=== PATIENT | male | born 1965 | race Two or more races ===

== ENCOUNTER 2023-08-20 23:01 | Inpatient (IN) | payer OTHER ==
[2023-08-20 23:46] VITALS: BMI 20.3
[2023-08-21] MEDS ORDERED: BENZONATATE 200 MG CAPSULE PO PRN (01:00)
[2023-08-21] MEDS ORDERED: MAG HYDROX/AL HYDROX/SIMETH 30 ML UNIT-DOSE CUP PO PRN (01:00)
[2023-08-21] MEDS ORDERED: ONDANSETRON *ODT* 4 MG TABLET SL PRN (01:00)
[2023-08-21] MEDS ORDERED: MAGNESIUM HYDROX 2400MG/30ML ORAL SUSPENSION 30 ML CUP PO PRN (01:00)
[2023-08-21] MEDS ORDERED: POLYETHYLENE GLYCOL (HEALTHYLAX) 3350 17 GM PACKET PO PRN (01:00)
[2023-08-21] MEDS ORDERED: IBUPROFEN 400 MG TABLET (FP) PO PRN (01:00)
[2023-08-21] MEDS ORDERED: guaiFENesin 600 MG TABLET.ER (FP) PO PRN (01:00)
[2023-08-21] MEDS ORDERED: ACETAMINOPHEN 325 MG TABLET (FP) PO PRN (01:00)
[2023-08-21] MEDS ORDERED: LOPERAMIDE HCL 2 MG CAPSULE PO PRN (01:00)
[2023-08-21] MEDS ORDERED: NICOTINE POLACRILEX 2 MG GUM BUC PRN (01:00)
[2023-08-21] MEDS ORDERED: BISMUTH SUBSALICYLATE 524 MG/30 ML PO PRN (01:00)
[2023-08-21] MEDS ORDERED: NALOXONE HCL 0.4 MG/ML VIAL IM PRN (01:00)
[2023-08-21] MEDS ORDERED: NALOXONE HCL (KLOXXADO) 8 MG SPRAY NS PRN (01:00)
[2023-08-21] MEDS ORDERED: BENZOCAINE/MENTHOL (CHLORASEPTIC ) LOZENGE MM PRN (01:00)
[2023-08-21] MEDS: NICOTINE 14 MG/24 HOURS TOPICAL PATCH TD SCH (10:13)
[2023-08-21] MEDS: PRENATAL VITAMINS W/ FOLIC ACID TABLET (FP) PO SCH (10:13)
[2023-08-21] MEDS: hydrOXYzine PAMOATE 25 MG CAPSULE (FP) PO PRN (21:36)
[2023-08-21] MEDS: IBUPROFEN 600 MG TABLET (FP) PO PRN (21:36)
[2023-08-21] MEDS: MELATONIN 5 MG TABLETS PO SCH (21:36)
[2023-08-21] MEDS: THIAMINE 100 MG TABLET PO SCH (21:37)
[2023-08-22] MEDS ORDERED: diazePAM 5 MG TABLET PO PRN (10:33)
[2023-08-22] MEDS: diazePAM 5 MG TABLET PO SCH (11:56)
[2023-08-22 12:03] LABS: HEMOGLOBIN 13.9 GM/dL (11.7-16.9); MCH 34.4 pg (25.7-33.7); MCHC 34.8 g/dl (32.0-35.9); MEAN PLT VOLUME 8.2 fl (7.5-11.1); PLATELET COUNT 251 10^3/uL (134-434); RBC 4.04 M/mm3 (4.00-5.60); RDW 13.6 % (11.9-15.9); WHITE BLOOD COUNT 3.1 K/mm3 (4.0-10.0)
[2023-08-22 12:18] LABS: POTASSIUM 3.7 mmol/L (3.5-5.1)
[2023-08-22 12:31] LABS: CALCIUM 8.8 mg/dL (8.5-10.1)
[2023-08-22 12:35] LABS: CREATININE 0.8 mg/dL (0.55-1.3)
[2023-08-22 12:37] LABS: TOT PROT 5.9 g/dl (6.4-8.2)
[2023-08-22 12:38] LABS: BILIRUBIN,TOTAL 1.3 mg/dL (0.2-1)
[2023-08-22] MEDS: METHOCARBAMOL 500 MG TABLET PO PRN (22:20)
[2023-08-24] MEDS: diazePAM 5 MG TABLET PO SCH (05:40)
[2023-08-25] MEDS: diazePAM 5 MG TABLET PO SCH (05:20)
[2023-08-26] MEDS: diazePAM 5 MG TABLET PO ONE (06:10)
[2023-08-26 06:30] VITALS: RESP 16
[2023-08-26 09:04] VITALS: BP 96/67; PULSE 69; TEMP 98
== END 2023-08-26 10:06 | disposition home or self-care (01) | DRG 774 ==
LOC: YASAS 23:01 → Y3N 08-21 01:30
PROVIDERS: ADMIT Allergy & Immunology; ATTEND Surgery
PROC: HZ2ZZZZ Detoxification Services for Substance Abuse Treatment (ICD-10-PCS; principal; 2023-08-21)
DX: F10.230 Alcohol dependence with withdrawal, uncomplicated (principal); F14.20 Cocaine dependence, uncomplicated; F12.20 Cannabis dependence, uncomplicated; F17.210 Nicotine dependence, cigarettes, uncomplicated; F32.A Depression, unspecified; F41.9 Anxiety disorder, unspecified; G47.00 Insomnia, unspecified; Z86.11 Personal history of tuberculosis; Z56.0 Unemployment, unspecified; Z59.00 Homelessness unspecified
CPT/HCPCS: 36415; 71046-TC-FY; 80053; 80305; 80307; 85027; 86780; 93005; 93010

== ENCOUNTER 2023-12-27 18:07 | Inpatient (IN) | payer OTHER ==
[2023-12-27 20:22] VITALS: BMI 20.9
[2023-12-27] MEDS ORDERED: DICYCLOMINE HCL 10 MG CAPSULE PO PRN (20:36)
[2023-12-27] MEDS ORDERED: NICOTINE POLACRILEX 2 MG GUM BUC PRN (20:36)
[2023-12-27] MEDS ORDERED: IBUPROFEN 400 MG TABLET (FP) PO PRN (20:36)
[2023-12-27] MEDS ORDERED: BISMUTH SUBSALICYLATE 524 MG/30 ML PO PRN (20:36)
[2023-12-27] MEDS ORDERED: guaiFENesin 600 MG TABLET.ER (FP) PO PRN (20:36)
[2023-12-27] MEDS ORDERED: POLYETHYLENE GLYCOL (HEALTHYLAX) 3350 17 GM PACKET PO PRN (20:36)
[2023-12-27] MEDS ORDERED: ACETAMINOPHEN 325 MG TABLET (FP) PO PRN (20:36)
[2023-12-27] MEDS ORDERED: LOPERAMIDE HCL 2 MG CAPSULE PO PRN (20:36)
[2023-12-27] MEDS ORDERED: NICOTINE POLACRILEX 2 MG LOZENGE BC PRN (20:36)
[2023-12-27] MEDS ORDERED: BENZONATATE 200 MG CAPSULE PO PRN (20:36)
[2023-12-27] MEDS ORDERED: P-EPHED 60MG/TRIPROLIDI 2.5MG TABLET PO PRN (20:36)
[2023-12-27] MEDS ORDERED: MAG HYDROX/AL HYDROX/SIMETH 30 ML UNIT-DOSE CUP PO PRN (20:36)
[2023-12-27] MEDS ORDERED: BENZOCAINE/MENTHOL (CHLORASEPTIC ) LOZENGE MM PRN (20:36)
[2023-12-27] MEDS ORDERED: ONDANSETRON *ODT* 4 MG TABLET SL PRN (20:36)
[2023-12-27] MEDS ORDERED: MAGNESIUM HYDROX 2400MG/30ML ORAL SUSPENSION 30 ML CUP PO PRN (20:36)
[2023-12-27] MEDS ORDERED: IBUPROFEN 600 MG TABLET (FP) PO PRN (20:36)
[2023-12-27] MEDS: MELATONIN 5 MG TABLETS PO SCH (21:58)
[2023-12-27] MEDS: THIAMINE 100 MG TABLET PO SCH (21:58)
[2023-12-28] MEDS ORDERED: diazePAM 5 MG TABLET PO PRN (09:01)
[2023-12-28] MEDS: PRENATAL VITAMINS W/ FOLIC ACID TABLET (FP) PO SCH (10:13)
[2023-12-28] MEDS: diazePAM 5 MG TABLET PO SCH (10:13)
[2023-12-28 14:36] LABS: HEMATOCRIT 39.2 % (35.4-49); MCH 33.7 pg (25.7-33.7); MCHC 33.1 g/dl (32.0-35.9); MEAN CELL VOLUME 101.7 fl (80-96); MEAN PLT VOLUME 9.3 fl (7.5-11.1); PLATELET COUNT 188 10^3/uL (134-434); RBC 3.86 M/mm3 (4.00-5.60); RDW 13.6 % (11.9-15.9); WHITE BLOOD COUNT 3.3 K/mm3 (4.0-10.0)
[2023-12-28 14:40] LABS: CHLORIDE 110 mmol/L (98-107); POTASSIUM 3.9 mmol/L (3.5-5.1); SODIUM 143 mmol/L (136-145)
[2023-12-28 14:47] LABS: ALBUMIN 3.4 g/dl (3.4-5.0); ANION GAP 4 mmol/L (4-13); BLOOD UREA NITROGEN 13.8 mg/dL (7-18); CALCIUM 8.9 mg/dL (8.5-10.1); CO2 29 mmol/L (21-32); GLUCOSE,RANDOM 105 mg/dL (74-106)
[2023-12-28 14:51] LABS: CREATININE 0.8 mg/dL (0.55-1.3); SGOT/AST 18 U/L (15-37); SGPT/ALT 33 U/L (13-61)
[2023-12-28 14:52] LABS: BILIRUBIN,TOTAL 0.4 mg/dL (0.2-1); TOT PROT 5.8 g/dl (6.4-8.2)
[2023-12-28 14:53] LABS: ALK PHOS 50 U/L (45-117)
[2023-12-30] MEDS: diazePAM 5 MG TABLET PO SCH (06:14)
[2023-12-31] MEDS: diazePAM 5 MG TABLET PO SCH (06:14)
[2023-12-31] MEDS: METHOCARBAMOL 500 MG TABLET PO PRN (22:11)
[2023-12-31] MEDS: hydrOXYzine PAMOATE 25 MG CAPSULE (FP) PO PRN (22:11)
[2024-01-01] MEDS: diazePAM 5 MG TABLET PO ONE (06:27)
[2024-01-01 09:07] VITALS: BP 118/69; PULSE 69; RESP 18; TEMP 98.3
== END 2024-01-01 09:30 | disposition home or self-care (01) | DRG 774 ==
LOC: YASAS 18:07 → Y3N 21:36
PROVIDERS: ADMIT Allergy & Immunology; ATTEND Surgery
PROC: HZ2ZZZZ Detoxification Services for Substance Abuse Treatment (ICD-10-PCS; principal; 2023-12-27)
DX: F10.230 Alcohol dependence with withdrawal, uncomplicated (principal); F14.20 Cocaine dependence, uncomplicated; F12.20 Cannabis dependence, uncomplicated; F17.210 Nicotine dependence, cigarettes, uncomplicated; F41.8 Other specified anxiety disorders
CPT/HCPCS: 36415; 80053; 80305; 80307; 85027

== ENCOUNTER 2024-06-08 15:17 | Inpatient (IN) | payer OTHER ==
[2024-06-08 15:50] VITALS: BMI 20.7
[2024-06-08] MEDS ORDERED: POLYETHYLENE GLYCOL (HEALTHYLAX) 3350 17 GM PACKET PO PRN (16:14)
[2024-06-08] MEDS ORDERED: BISMUTH SUBSALICYLATE 524 MG/30 ML PO PRN (16:14)
[2024-06-08] MEDS ORDERED: NALOXONE (NARCAN) HCL 4 MG/0.1 ML SPRAY NS PRN (16:14)
[2024-06-08] MEDS ORDERED: MAG HYDROX/AL HYDROX/SIMETH 30 ML UNIT-DOSE CUP PO PRN (16:14)
[2024-06-08] MEDS ORDERED: METHOCARBAMOL 500 MG TABLET PO PRN (16:14)
[2024-06-08] MEDS ORDERED: BENZOCAINE/MENTHOL (CHLORASEPTIC ) LOZENGE MM PRN (16:14)
[2024-06-08] MEDS ORDERED: DICYCLOMINE HCL 10 MG CAPSULE PO PRN (16:14)
[2024-06-08] MEDS ORDERED: ONDANSETRON *ODT* 4 MG TABLET SL PRN (16:14)
[2024-06-08] MEDS ORDERED: IBUPROFEN 600 MG TABLET (FP) PO PRN (16:14)
[2024-06-08] MEDS ORDERED: diazePAM 5 MG TABLET PO PRN (16:14)
[2024-06-08] MEDS ORDERED: LOPERAMIDE HCL 2 MG CAPSULE PO PRN (16:14)
[2024-06-08] MEDS ORDERED: IBUPROFEN 400 MG TABLET (FP) PO PRN (16:14)
[2024-06-08] MEDS ORDERED: guaiFENesin 600 MG TABLET.ER (FP) PO PRN (16:14)
[2024-06-08] MEDS ORDERED: BENZONATATE 200 MG CAPSULE PO PRN (16:14)
[2024-06-08] MEDS ORDERED: MAGNESIUM HYDROX 2400MG/30ML ORAL SUSPENSION 30 ML CUP PO PRN (16:14)
[2024-06-08] MEDS ORDERED: hydrOXYzine PAMOATE 25 MG CAPSULE (FP) PO PRN (16:14)
[2024-06-08] MEDS ORDERED: ACETAMINOPHEN 325 MG TABLET (FP) PO PRN (16:14)
[2024-06-08] MEDS ORDERED: diazePAM 5 MG TABLET ONE (17:35)
[2024-06-08] MEDS: diazePAM 5 MG TABLET PO SCH (17:37)
[2024-06-08] MEDS: PRENATAL VITAMINS W/ FOLIC ACID TABLET (FP) PO SCH (17:39)
[2024-06-08] MEDS: NICOTINE 21 MG/24 HOURS TOPICAL PATCH TD SCH (17:40)
[2024-06-08] MEDS: MELATONIN 5 MG TABLETS PO SCH (22:36)
[2024-06-08] MEDS: NALTREXONE HCL 50 MG TABLET PO SCH (22:36)
[2024-06-08] MEDS: THIAMINE 100 MG TABLET PO SCH (22:36)
[2024-06-09] MEDS ORDERED: NALTREXONE HCL 50 MG TABLET PO SCH (10:00)
[2024-06-09 12:40] LABS: HEMOGLOBIN 12.5 g/dL (13.7-17.5); MCHC 32.9 g/dl (32.3-36.5); MEAN CELL VOLUME 100.5 fl (79.0-92.2); MEAN PLT VOLUME 10.3 fl (9.4-12.4); PLATELET COUNT # 215 x10^3/uL (163-337); RDW 13.8 % (12.2-16.1)
[2024-06-09 12:47] LABS: CHLORIDE 107 mmol/L (98-107); POTASSIUM 3.9 mmol/L (3.5-5.1); SODIUM 142 mmol/L (136-145)
[2024-06-09 12:51] LABS: CALCIUM 8.9 mg/dL (8.5-10.1)
[2024-06-09 12:52] LABS: ALBUMIN 3.4 g/dl (3.4-5.0); ANION GAP 5 mmol/L (4-13); BLOOD UREA NITROGEN 8.8 mg/dL (7-18); CO2 30 mmol/L (21-32); GLUCOSE,RANDOM 115 mg/dL (74-106)
[2024-06-09 12:55] LABS: CREATININE 0.9 mg/dL (0.55-1.3); SGOT/AST 15 U/L (15-37); SGPT/ALT 22 U/L (13-61)
[2024-06-09 12:56] LABS: BILIRUBIN,TOTAL 0.9 mg/dL (0.2-1)
[2024-06-09 12:58] LABS: ALK PHOS 52 U/L (45-117)
[2024-06-09] MEDS: MELATONIN 5 MG TABLETS PO SCH (22:19)
[2024-06-10] MEDS: diazePAM 5 MG TABLET PO SCH (05:46)
[2024-06-11] MEDS: diazePAM 5 MG TABLET PO SCH (06:37)
[2024-06-11] MEDS: NALTREXONE HCL 50 MG TABLET PO ONE (13:13)
[2024-06-11 21:24] VITALS: RESP 17
[2024-06-12] MEDS: diazePAM 5 MG TABLET PO ONE (06:00)
[2024-06-12] MEDS: NALTREXONE HCL 50 MG TABLET PO SCH (10:17)
[2024-06-12 10:48] VITALS: TEMP 97.3
[2024-06-12 13:41] VITALS: BP 117/63; PULSE 64
== END 2024-06-12 13:35 | disposition other institution (70) | DRG 774 ==
LOC: YASAS 15:17 → Y6N 17:10
PROVIDERS: ADMIT Allergy & Immunology; ATTEND Allergy & Immunology
PROC: HZ2ZZZZ Detoxification Services for Substance Abuse Treatment (ICD-10-PCS; principal; 2024-06-08)
DX: F10.230 Alcohol dependence with withdrawal, uncomplicated (principal); F14.20 Cocaine dependence, uncomplicated; F12.10 Cannabis abuse, uncomplicated; F17.213 Nicotine dependence, cigarettes, with withdrawal; F41.9 Anxiety disorder, unspecified; F32.A Depression, unspecified; D72.819 Decreased white blood cell count, unspecified; R63.6 Underweight; Z68.20 Body mass index [BMI] 20.0-20.9, adult; Z56.0 Unemployment, unspecified; Z59.00 Homelessness unspecified
CPT/HCPCS: 36415; 80053; 80305; 80307; 85027; 86780; 93005; 93010